=== PATIENT | male | born 1985 | race Caucasian/White ===

== ENCOUNTER 2021-02-15 21:24 | Emergency (ER) | payer OTHER ==
[~2021-02-15] VITALS: Ht 182.9 cm; Wt 106.6 kg
[~2021-02-15 21:24] MED LIST: HYDACE5 PO; NAPR550 PO
== END 2021-02-16 01:21 | disposition home or self-care (01) ==
LOC: ER 21:24
DX: S61.216A Laceration without foreign body of right little finger without damage to nail, initial encounter (principal); S63.40 Traumatic rupture of unspecified ligament of finger at metacarpophalangeal and interphalangeal joint; Z23 Encounter for immunization; W26.0XXA Contact with knife, initial encounter
CPT/HCPCS: 29130; 73140; 90471; 90714; 96372; 99283; J1885

== ENCOUNTER → 2022-02-11 | Outpatient (CLI) | payer OTHER | END | disposition home or self-care (01) | LOC: PLD 07:53 → LAB 07:53 → LAB SHORT 07:53 | DX: D22.5 Melanocytic nevi of trunk (principal) | CPT/HCPCS: 88305 ==